=== PATIENT | female | born 1965 | race Caucasian/White ===

== ENCOUNTER 2023-08-07 15:15 | Inpatient (IN) ==
[2023-08-07 16:57] LABS: ABS Eosinophils 0.2 10^3/uL (0.0-0.5); ABS Lymphocytes 1.9 10^3/uL (1.0-4.8); ABS Monocytes 0.4 10^3/uL (0.0-0.9); ABS Neutrophils 2.4 10^3/uL (1.5-7.6); ABS Nucleated RBC 0.02 10^3/ul; Eosinophil % 4.1 %; Hematocrit 42.3 % (35-45); Hemoglobin 13.6 g/dL (11.5-14.3); Lymphocyte % 38.7 %; Mean Corpuscular Hemoglobin 25.9 pg (27-33); Mean Corpuscular Hgb Conc 32.3 g/dL (31-36); Mean Corpuscular Volume 80.1 fL (80-97); Mean Platelet Volume 7.5 fL (7.5-11.2); Nucleated Red Blood Cells % 0.3 %/100WBC (0.0-0.8); Platelet Count 291 10^3/uL (150-450); Red Blood Count 5.28 10^6/uL (3.63-4.92); Red Cell Distribution Width 14.9 % (12-17)
[2023-08-07 17:07] LABS: Urine Appearance Cloudy; Urine Bilirubin Negative (Negative); Urine Blood Negative (Negative); Urine Color Yellow; Urine Glucose Negative (Negative); Urine Ketones Negative (Negative); Urine Nitrite Negative (Negative); Urine Protein Negative (Negative); Urine Specific Gravity 1.018 (1.002-1.030); Urine Urobilinogen Negative (Negative)
[2023-08-07 17:21] LABS: ALT 15 U/L (7-52); AST 21 U/L (13-39); Albumin 4.5 g/dL (3.2-5.2); Albumin/Globulin Ratio 1.3 (1-3); Alkaline Phosphatase 115 U/L (35-149); Anion Gap 6 mmol/L (2-16); Blood Urea Nitrogen 15 mg/dL (6-24); CO2 Carbon Dioxide 28 mmol/L (22-32); Calcium 9.6 mg/dL (8.6-10.3); Chloride 102 mmol/L (101-111); Creatinine, Serum 0.72 mg/dL (0.51-0.95); Globulin 3.4 g/dL (2-4); Glucose 86 mg/dL (70-100); Potassium 4.1 mmol/L (3.5-5.0); Sodium 136 mmol/L (135-145); Total Bilirubin 0.4 mg/dL (0.2-1.0); Total Protein 7.9 g/dL (6.4-8.9); eGFR CKD-EPI 97.5 (>60)
[2023-08-07 17:35] LABS: Acetaminophen < 15 mcg/mL; Alcohol, S < 13 mg/dL (<13); Salicylate < 2.50 mg/dL (<30)
[2023-08-07 17:48] LABS: Urine Benzodiazepine Screen None Detected (None Detect); Urine Cannabinoids Screen None Detected (None Detect); Urine Opiates Screen None Detected (None Detect)
[2023-08-07 17:51] LABS: TSH Ultra Thyroid Stim Horm 1.75 mcIU/mL (0.34-5.60)
[2023-08-07] MEDS ORDERED: Al Hydrox/Mg Hydrox/Simet LIQ 30 ML UDC PO PRN (19:50)
[2023-08-08 07:59] LABS: HDL Cholesterol 50.7 mg/dL
[2023-08-08 08:50] VITALS: BP 101/71
[2023-08-08] MEDS ORDERED: Vitamin THERAPEUTIC TAB PO SCH (09:00)
== END 2023-08-08 14:00 | disposition home or self-care (01) | DRG 897 ==
LOC: ED 15:15 → EDHOLD 18:30 → BSU 20:09
PROVIDERS: ADMIT Psychiatry & Neurology Psychiatry; ATTEND Psychiatry & Neurology Psychiatry

== ENCOUNTER 2023-10-01 17:09 | Inpatient (IN) ==
[2023-10-01 18:59] LABS: ABS Basophils 0.1 10^3/uL (0.0-0.1); ABS Eosinophils 0.1 10^3/uL (0.0-0.5); ABS Lymphocytes 1.8 10^3/uL (1.0-4.8); ABS Monocytes 0.5 10^3/uL (0.0-0.9); ABS Neutrophils 3.1 10^3/uL (1.5-7.6); Eosinophil % 2.1 %; Hematocrit 40.8 % (35-45); Hemoglobin 13.6 g/dL (11.5-14.3); Lymphocyte % 32.8 %; Mean Corpuscular Hemoglobin 26.7 pg (27-33); Mean Corpuscular Hgb Conc 33.4 g/dL (31-36); Mean Corpuscular Volume 79.9 fL (80-97); Mean Platelet Volume 7.7 fL (7.5-11.2); Platelet Count 238 10^3/uL (150-450); Red Cell Distribution Width 16.2 % (12-17); White Blood Count 5.6 10^3/uL (3.8-11.8)
[2023-10-01 19:09] LABS: Urine Appearance Clear; Urine Bilirubin Negative (Negative); Urine Blood Negative (Negative); Urine Color Yellow; Urine Glucose Negative (Negative); Urine Ketones Negative (Negative); Urine Nitrite Negative (Negative); Urine Protein Trace (Negative); Urine Specific Gravity 1.028 (1.002-1.030); Urine Urobilinogen 1+ (Negative)
[2023-10-01 19:28] LABS: Urine Benzodiazepine Screen Presumptive Positive (None Detect); Urine Cannabinoids Screen Presumptive Positive (None Detect); Urine Opiates Screen Presumptive Positive (None Detect)
[2023-10-01 19:35] LABS: ALT 12 U/L (7-52); AST 18 U/L (13-39); Acetaminophen < 15 mcg/mL; Albumin 4.4 g/dL (3.2-5.2); Albumin/Globulin Ratio 1.5 (1-3); Alcohol, S < 13 mg/dL (<13); Alkaline Phosphatase 102 U/L (35-149); Anion Gap 7 mmol/L (2-16); Blood Urea Nitrogen 18 mg/dL (6-24); CO2 Carbon Dioxide 26 mmol/L (22-32); Calcium 9.2 mg/dL (8.6-10.3); Chloride 104 mmol/L (101-111); Globulin 2.9 g/dL (2-4); Glucose 77 mg/dL (70-100); Potassium 4.2 mmol/L (3.5-5.0); Salicylate < 2.50 mg/dL (<30); Sodium 137 mmol/L (135-145); Total Bilirubin 0.3 mg/dL (0.2-1.0); Total Protein 7.3 g/dL (6.4-8.9)
[2023-10-01 19:50] LABS: TSH Ultra Thyroid Stim Horm 1.12 mcIU/mL (0.34-5.60)
[2023-10-01] MEDS ORDERED: Al Hydrox/Mg Hydrox/Simet LIQ 30 ML UDC PO PRN (23:47)
[2023-10-01] MEDS ORDERED: risperiDONE-M 1 mg Oradis TAB PO PRN (23:50)
[2023-10-02] MEDS: Vitamin THERAPEUTIC TAB PO SCH (07:47)
[2023-10-02] MEDS: Nicotine PATCH 14 MG/24 HR PATCH TRANSDERM SCH (07:49)
[2023-10-02] MEDS ORDERED: Albuterol HFA INHALER 8 gm MDI INH PRN (10:26)
[2023-10-02] MEDS: Fluticasone-Salmeterol 250-50 DISKUS NF INH SCH (19:26)
[2023-10-02] MEDS: Nicotine GUM 2MG FRUIT FLAVOR PO PRN (21:30)
[2023-10-03] MEDS: Lidocaine PATCH 5% PATCH TRANSDERM SCH (08:23)
[2023-10-03 09:06] LABS: HDL Cholesterol 58.9 mg/dL
[2023-10-03] MEDS: HYDROcodone/ACETAMIN 5/325 mg TAB PO PRN (12:54)
[2023-10-06 09:19] VITALS: BP 142/72
[2023-10-06] MEDS ORDERED: Naloxone Nasal Spray 4 MG/0.1 ML NASAL.SPR INTRANASAL PRN (13:27)
== END 2023-10-06 14:55 | disposition home or self-care (01) | DRG 897 ==
LOC: ED 17:09 → EDHOLD 23:19 → BSU 23:27
PROVIDERS: ADMIT Psychiatry & Neurology Psychiatry; ATTEND Psychiatry & Neurology Psychiatry

== ENCOUNTER 2023-11-03 12:50 | Inpatient (IN) ==
[2023-11-03 13:46] LABS: Urine Appearance Clear; Urine Bilirubin Negative (Negative); Urine Blood Negative (Negative); Urine Color Light-Yellow; Urine Glucose Negative (Negative); Urine Ketones Negative (Negative); Urine Nitrite Negative (Negative); Urine Protein Negative (Negative); Urine Specific Gravity 1.012 (1.002-1.030); Urine Urobilinogen Negative (Negative); Urine pH 5.5 (5.0-8.0)
[2023-11-03 14:22] LABS: Urine Benzodiazepine Screen None Detected (None Detect); Urine Cannabinoids Screen None Detected (None Detect); Urine Opiates Screen Presumptive Positive (None Detect)
[2023-11-03] MEDS: Nicotine GUM 4MG FRUIT FLAVOR PO PRN (19:27)
[2023-11-03] MEDS ORDERED: Al Hydrox/Mg Hydrox/Simet LIQ 30 ML UDC PO PRN (20:30)
[2023-11-03] MEDS ORDERED: Albuterol HFA INHALER 8 gm MDI INH PRN (20:33)
[2023-11-03] MEDS: HYDROcodone/ACETAMIN 5/325 mg TAB PO PRN (21:58)
[2023-11-04] MEDS: Nicotine PATCH 21 MG/24 HR PATCH TRANSDERM SCH (07:37)
[2023-11-04] MEDS: HYDROcodone/ACETAMIN 5/325 mg TAB PO PRN (07:37)
[2023-11-04] MEDS: Lidocaine PATCH 5% PATCH TRANSDERM SCH (07:37)
[2023-11-04 08:53] LABS: HDL Cholesterol 51.4 mg/dL
[2023-11-04] MEDS: Mometasone/Formoter 200/5 MDI INH SCH (09:59)
[2023-11-04] MEDS: Nicotine Lozenge mini 4 MG LOZNG.MINI MT PRN (18:38)
[2023-11-04] MEDS: Nicotine GUM 4MG FRUIT FLAVOR PO PRN (21:00)
[2023-11-08 09:36] VITALS: BP 150/87
== END 2023-11-10 11:43 | disposition home or self-care (01) | DRG 897 ==
LOC: ED 12:50 → EDHOLD 20:30 → BSU 20:58
PROVIDERS: ADMIT Psychiatry & Neurology Psychiatry; ATTEND Psychiatry & Neurology Psychiatry